=== PATIENT | male | born 1990 | race Two or more races ===

== ENCOUNTER 2022-08-17 23:42 | Emergency (ER) | payer SELFPAY ==
[~2022-08-17] VITALS: Ht 167.6 cm; Wt 68.9 kg
--- NOTE | 2022-08-18 | NUR ---
KARYN. ALTERED & RESP DISTRESS REPORTED TOOK GHB & POPPERS. REPORTED 70% ON RA. RECIEVED 4MG INTRANASAL NARCAN AND 2MG IV NARCAN. PT STILL ALTERED UPON ARRIVED ON 15LPM NRB. RT AND MD AT BEDSIDE.
--- NOTE | 2022-08-18 00:04 | NUR ---
18G AT [facility]. BLOOD COLLECTED AND SENT TO LAB.
[2022-08-18] MEDS ORDERED: ONDANSETRON HCL/PF 4 MG/2 ML VIAL ONE (00:05)
[2022-08-18 00:27] LABS: BASOPHILS % (AUTO) 0.3 % (0.0-2.0); EOSINOPHILS % (AUTO) 0.3 % (0.0-6.0); HEMATOCRIT 47 % (39-51); HEMOGLOBIN 15.6 g/dL (13.5-17.5); LYMPHOCYTES # (AUTO) 2.6 K/uL (0.8-4.8); LYMPHOCYTES % (AUTO) 19.2 % (20.0-44.0); MEAN CORPUSCULAR HGB CONC 33 g/dl (31.0-36.0); MEAN CORPUSCULAR VOLUME 98 fL (80-96); MONOCYTES # (AUTO) 0.7 K/uL (0.1-1.30); MONOCYTES % (AUTO) 5.3 % (2.0-12.0); NEUTROPHILS % (AUTO) 74.9 % (43.0-81.0); PLATELET COUNT (AUTO) 332 K/uL (150-450); RED BLOOD CELL COUNT(AUTO) 4.77 MIL/uL (4.5-6.0); WHITE BLOOD COUNT (AUTO) 13.3 K/uL (4.3-11.0)
[2022-08-18] MEDS ORDERED: ONDANSETRON HCL/PF - ER 4 MG/2 ML VIAL IV ONE (00:30)
[2022-08-18 00:52] LABS: CALCIUM, SERUM 8.9 mg/dL (8.5-10.1); CARBON DIOXIDE 27 mmol/L (21-32); CHLORIDE 100 mmol/L (98-107); CREATININE 1.3 mg/dL (0.6-1.3); GLUCOSE 129 mg/dL (74-106); POTASSIUM 3.8 mmol/L (3.5-5.1); SODIUM SERUM 138 mmol/L (136-145); UREA NITROGEN, BLOOD 14 mg/dL (7-18)
[2022-08-18 00:56] LABS: ALANINE AMINOTRANSFERASE 31 U/L (12-78); ALCOHOL, BLOOD < 3 mg/dL (0-0); ALKALINE PHOSPHATASE 107 U/L (46-116); ASPARTATE AMINOTRANSFERASE 24 U/L (15-37); BILIRUBIN,DIRECT 0.1 mg/dL (0.0-0.2); BILIRUBIN,TOTAL 0.4 mg/dL (0.2-1.0); TOTAL PROTEIN, SERUM 8.5 g/dL (6.4-8.2)
[2022-08-18 00:57] LABS: ACETAMINOPHEN 0 ug/ml (10-30)
[2022-08-18] MEDS ORDERED: NALOXONE PREFILLED SYRINGE 2 MG/2 ML SYRINGE ONE (01:27)
[2022-08-18] MEDS ORDERED: HALOPERIDOL LACTATE INJ 5 MG/ML VIAL ONE (02:27)
[2022-08-18] MEDS ORDERED: diphenhydrAMINE HCL 50 MG/ML VIAL ONE (02:45)
[2022-08-18] MEDS ORDERED: LORAZEPAM INJ 2 MG/ML VIAL ONE (02:45)
[2022-08-18] MEDS ORDERED: diphenhydrAMINE HCL 50 MG/ML VIAL IV ONE (03:00)
[2022-08-18] MEDS ORDERED: LORAZEPAM INJ 2 MG/ML VIAL IV ONE (03:00)
[2022-08-18] MEDS ORDERED: HALOPERIDOL LACTATE INJ 5 MG/ML VIAL IM ONE (03:00)
--- NOTE | 2022-08-18 03:24 | NUR ---
URINE COLLECTED VIA IN AND OUT CATH AND SENT TO LAB
[2022-08-18 04:30] LABS: BILIRUBIN,URINE NEGATIVE (NEGATIVE); COLOR,URINE YELLOW (YELLOW); LEUKOCYTE ESTERASE ,URINE NEGATIVE (NEGATIVE); NITRITE, URINE NEGATIVE (NEGATIVE); PROTEIN,URINE NEGATIVE (NEGATIVE); UGLUCOSE NEGATIVE (NEGATIVE)
[2022-08-18 04:37] LABS: BACTERIA,URINE Rare /HPF (None Seen); RBC,URINE 0-2 /HPF (0-2); SQUAMOUS EPITHELIAL CELL,UR Few /HPF (None Seen)
--- NOTE | 2022-08-18 06:46 | NUR ---
PT CURRENTLY AWAKE AND ALERT. BREATHING UNLABORED 99% ON RA. PASSED REPEAT SWALLOW EVAL.
[2022-08-18 07:17] VITALS: BP 115/89
--- NOTE | 2022-08-18 07:17 | NUR ---
Patient discharged to home in stable condition. Written and verbal after care instructions given. Patient verbalizes understanding of instruction.IV removed. Catheter intact and site benign. Pressure and 4x4 applied to site. No bleeding noted.
== END 2022-08-18 07:18 | disposition home or self-care (01) ==
LOC: ER 23:45 → EDBD 23:45 → ER 08-18 07:18
DX: T41.291A Poisoning by other general anesthetics, accidental (unintentional), initial encounter (principal); R40.4 Transient alteration of awareness; Y92.89 Other specified places as the place of occurrence of the external cause
CPT/HCPCS: 99284; 70450; 36415; 96372; 96374; 96375; 85025; 80048; 80076; 81001; 82962; 80143; 80320; 80307; J2060; J1200; J1630; J2405; J2310; G0480